=== PATIENT | female | born 1975 | race Caucasian/White ===

== ENCOUNTER 2019-02-21 12:23 | Emergency (ER) | payer OTHER ==
[~2019-02-21] VITALS: Ht 175.3 cm; Wt 88.5 kg
[2019-02-21 12:35] VITALS: BP 116/82
[2019-02-21 13:16] LABS: BASOPHILS % (AUTO) 0.6 % (0.0-2.0); EOSINOPHILS % (AUTO) 0.2 % (0.0-4.0); HEMOGLOBIN 13.8 g/dL (12.0-16.0); LYMPHOCYTES # (AUTO) 1.5 K/uL (2.5-16.5); LYMPHOCYTES % (AUTO) 25.3 % (20.5-51.1); MEAN CORPUSCULAR HEMOGLOBIN 32 pg (27-31); MEAN CORPUSCULAR HGB CONC 35 g/dL (33-37); MEAN CORPUSCULAR VOLUME 93.6 fL (80-94); MONOCYTES # (AUTO) 0.5 K/uL (0.8-1.0); MONOCYTES % (AUTO) 7.8 % (1.7-9.3); NEUTROPHILS % (AUTO) 66.1 % (42.2-75.2); PLATELET COUNT (AUTO) 315 K/uL (140-450); RED BLOOD CELL COUNT(AUTO) 4.28 MIL/uL (4.20-5.40); RED CELL DISTRIBUTION WIDTH 12.8 % (11.6-13.7); WHITE BLOOD COUNT (AUTO) 6.1 K/uL (4.8-10.8)
[2019-02-21 13:29] LABS: ANION GAP 15.3 (8-16); CARBON DIOXIDE 25.5 mmol/L (21-32); CREATININE 0.8 mg/dL (0.6-1.3); POTASSIUM 3.8 mmol/L (3.5-5.1)
[2019-02-21 13:35] LABS: ALBUMIN 4.5 g/dL (3.4-5.0); TOTAL BILIRUBIN 0.3 mg/dL (0.0-1.0)
--- NOTE | 2019-02-21 13:35 | NUR ---
U/S AT BEDSIDE AT THIS TIME
[2019-02-21 13:51] LABS: APPEARANCE,URINE CLEAR (CLEAR); BILIRUBIN,URINE NEGATIVE (NEGATIVE); BLOOD, URINE NEGATIVE (NEGATIVE); COLOR,URINE YELLOW (YELLOW); LEUKOCYTE ESTERASE ,URINE 1+ (NEGATIVE); NITRITE, URINE NEGATIVE (NEGATIVE); UGLUCOSE NEGATIVE (NEGATIVE)
--- NOTE | 2019-02-21 14:00 | NUR ---
PT BIB SELF C/O RLQ ABD "DISCOMFORT" AT 5/10 X2 DAYS. PT STATES SHE JUST FOUND OUT SHE IS AND HAD PREVIOUS ECTOPIC W/ SAME SYMPTOMS. - N/V/D, - FEVER, - DYSURIA, - VAGINAL BLEEDING. LMP 01/14/19, 5 WEEKS , , VIDYA 10/21/18. VSS. MEDHX:DENIES RX:DENIES
[2019-02-21 14:09] LABS: RBC,URINE 0 /HPF (0-5)
[2019-02-21 15:28] VITALS: BP 128/88
== END 2019-02-21 15:30 | disposition home or self-care (01) ==
LOC: MED 12:23
DX: O9A.219 Injury, poisoning and certain other consequences of external causes complicating pregnancy, unspecified trimester (principal); O23.40 Unspecified infection of urinary tract in pregnancy, unspecified trimester; S46.912A Strain of unspecified muscle, fascia and tendon at shoulder and upper arm level, left arm, initial encounter; E07.9 Disorder of thyroid, unspecified; Z98.890 Other specified postprocedural states; X58.XXXA Exposure to other specified factors, initial encounter; Y93.89 Activity, other specified; Y92.89 Other specified places as the place of occurrence of the external cause; Y99.8 Other external cause status
CPT/HCPCS: 36415; 76817; 80053; 81001; 81025; 84702; 85025; 86900; 86901; 87086; 99284; Q0092

== ENCOUNTER 2019-02-23 08:42 | Emergency (ER) | payer OTHER ==
[~2019-02-23] VITALS: Ht 175.3 cm; Wt 88.5 kg
--- NOTE | 2019-02-23 08:49 | NUR ---
Patient ambulated to bed 8. RN evaluating patient at bedside.
[2019-02-23 08:53] VITALS: BP 133/81
--- NOTE | 2019-02-23 08:53 | NUR ---
43 Y/O FEMALE REQUESTING FOLLOW UP FOR HCG LABS. A/OX4; FOLLOWS COMMANDSL; BREATHING UNLABORED AND SYMMETRICAL. NO PAIN NOTED. ERMD MADE AWARE OF STATUS. SIDE RAILSX1. WILL CONTINUE TO MONITOR. PMH:DENIES RX:CALCIUM ALLERGIC: CATS
--- NOTE | 2019-02-23 08:58 | NUR ---
Dr. Sanches evaluating patient at bedside.
--- NOTE | 2019-02-23 09:15 | NUR ---
ATTEMPTED TO DRAW PATIENT, HARD STICK. PT REFUSED HAND DRAW. LAB CALLED FOR DRAW.
--- NOTE | 2019-02-23 09:44 | NUR ---
PHLEB AT BEDSIDE.
[2019-02-23 09:57] LABS: BASOPHILS % (AUTO) 0.9 % (0.0-2.0); EOSINOPHILS % (AUTO) 0.3 % (0.0-4.0); HEMATOCRIT 37.6 % (36-48); HEMOGLOBIN 12.7 g/dL (12.0-16.0); LYMPHOCYTES # (AUTO) 1.9 K/uL (2.5-16.5); LYMPHOCYTES % (AUTO) 35.9 % (20.5-51.1); MEAN CORPUSCULAR HEMOGLOBIN 32 pg (27-31); MEAN CORPUSCULAR HGB CONC 34 g/dL (33-37); MONOCYTES # (AUTO) 0.4 K/uL (0.8-1.0); MONOCYTES % (AUTO) 7.8 % (1.7-9.3); NEUTROPHILS # (AUTO) 2.9 K/uL (1.8-7.7); NEUTROPHILS % (AUTO) 55.1 % (42.2-75.2); PLATELET COUNT (AUTO) 311 K/uL (140-450); RED BLOOD CELL COUNT(AUTO) 4.04 MIL/uL (4.20-5.40); RED CELL DISTRIBUTION WIDTH 12.6 % (11.6-13.7); WHITE BLOOD COUNT (AUTO) 5.3 K/uL (4.8-10.8)
--- NOTE | 2019-02-23 09:58 | NUR ---
PATIENT IN NO DISTRESS AT THIS TIME. WILL CONTINUE TO MONITOR.
--- NOTE | 2019-02-23 10:48 | NUR ---
Dr. Sanches re-evaluating patient at bedside.
[2019-02-23 10:52] VITALS: BP 133/81
--- NOTE | 2019-02-23 10:52 | NUR ---
Patient discharged with v/s stable. Written and verbal after care instructions given and explained. Patient verbalized understanding. Ambulatory with steady gait. All questions addressed prior to discharge. Advised to follow up with PMD.
== END 2019-02-23 10:52 | disposition home or self-care (01) ==
LOC: MED 08:42
DX: O23.41 Unspecified infection of urinary tract in pregnancy, first trimester (principal); E07.9 Disorder of thyroid, unspecified; Z98.890 Other specified postprocedural states; Z3A.01 Less than 8 weeks gestation of pregnancy
CPT/HCPCS: 36415; 84702; 85025; 99283